=== PATIENT | female | born 1975 | race Caucasian/White ===

== ENCOUNTER 2022-04-28 14:42 | Emergency (ER) | payer BC ==
[~2022-04-28] VITALS: Ht 152.4 cm; Wt 66.7 kg
[2022-04-28 15:21] VITALS: BP_SYST 110
[2022-04-28 16:37] LABS: BASOPHILS # (AUTO) 0.1 K/uL (0.0-0.2); BASOPHILS % (AUTO) 0.5 % (0.0-2.0); EOSINOPHILS # (AUTO) 0.1 K/uL (0.0-0.4); EOSINOPHILS % (AUTO) 0.9 % (0.0-4.0); HEMATOCRIT 41.5 % (36-48); HEMOGLOBIN 14.1 g/dL (12.0-16.0); LYMPHOCYTES # (AUTO) 4.1 K/uL (1.0-5.5); LYMPHOCYTES % (AUTO) 27.3 % (20.5-51.5); MEAN CORPUSCULAR HEMOGLOBIN 30 pg (27-31); MEAN CORPUSCULAR HGB CONC 34 % (32-36); MEAN CORPUSCULAR VOLUME 89 fL (79.0-98.0); MONOCYTES # (AUTO) 1.4 K/uL (0.0-1.0); MONOCYTES % (AUTO) 9.3 % (1.7-9.3); NEUTROPHILS # (AUTO) 9.2 K/uL (1.8-7.7); PLATELET COUNT (AUTO) 280 K/uL (130-430); RED BLOOD CELL COUNT(AUTO) 4.68 MIL/uL (4.2-6.2); RED CELL DISTRIBUTION WIDTH 13.9 % (9.0-15.0); WHITE BLOOD COUNT (AUTO) 14.9 K/uL (4.8-10.8)
[2022-04-28 16:59] LABS: PROTHROMBIN TIME 9.9 SECS (9.5-12.5)
[2022-04-28 17:04] LABS: CALCIUM 9.7 mg/dL (8.4-11.0); CREATININE 0.88 mg/dL (0.55-1.30)
[2022-04-28 17:19] LABS: ALBUMIN 3.7 g/dL (3.4-4.8); TOTAL BILIRUBIN 0.3 mg/dL (0.0-1.0)
--- NOTE | 2022-04-28 19:15 | NUR ---
CALLED [facility] TO ASSESS. NO RESPONSE.
--- NOTE | 2022-04-28 19:21 | NUR ---
made call out to lobby and waiting room, no answer. [email or web address] by ED physician
== END 2022-04-28 19:21 | disposition left against medical advice (07) ==
LOC: SED 14:42
DX: K92.2 Gastrointestinal hemorrhage, unspecified (principal); Z53.21 Procedure and treatment not carried out due to patient leaving prior to being seen by health care provider
CPT/HCPCS: 36415; 80053; 83690; 85025; 85610-TC; 85730-TC